=== PATIENT | male | born 1980 | race Caucasian/White ===

== ENCOUNTER 2021-04-02 11:20 | Emergency (ER) | payer SELFPAY ==
--- NOTE | 2021-04-02 12:13 | NUR ---
supervisor fusing room: attempted to call patient for tiage, no answer in lobby
--- NOTE | 2021-04-02 12:20 | NUR ---
desktop publishing associate: attempted to call patient for triage, no answer in lobby
--- NOTE | 2021-04-02 12:30 | NUR ---
chuck splitter: attempted to call pt for triage, no answer in lobby
== END 2021-04-02 13:08 | disposition left against medical advice (07) ==
LOC: ED 11:30
DX: R50.9 Fever, unspecified (principal); M54.9 Dorsalgia, unspecified; Z53.21 Procedure and treatment not carried out due to patient leaving prior to being seen by health care provider